=== PATIENT | male | born 1955 | race Caucasian/White ===

== ENCOUNTER 2022-11-09 22:09 | Emergency (ER) | payer MEDICARE ==
[~2022-11-09] VITALS: Ht 190.5 cm; Wt 127.0 kg
[2022-11-09] MEDS ORDERED: IBUPROFEN 400 MG TABLET PO ONE (23:30)
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
--- NOTE | 2022-11-09 23:38 | NUR ---
BROUGHT TO CT DEPT
[2022-11-09] MEDS ORDERED: IBUPROFEN 400 MG TABLET ONE (23:40)
--- NOTE | 2022-11-09 23:49 | NUR ---
PT RETURNED TO ER BED [address]
[2022-11-10] MEDS ORDERED: IBUP-1957 PO (00:10)
--- NOTE | 2022-11-10 00:16 | NUR ---
Patient discharged to home in stable condition. Written and verbal after care instructions given. Patient verbalizes understanding of instruction.
[2022-11-10 00:49] VITALS: BP 158/82
== END 2022-11-10 00:20 | disposition home or self-care (01) ==
LOC: ER 22:22
DX: S13.4XXA Sprain of ligaments of cervical spine, initial encounter (principal); S20.211A Contusion of right front wall of thorax, initial encounter; S46.011A Strain of muscle(s) and tendon(s) of the rotator cuff of right shoulder, initial encounter; Z85.46 Personal history of malignant neoplasm of prostate; V89.2XXA Person injured in unspecified motor-vehicle accident, traffic, initial encounter; Y93.89 Activity, other specified; Y92.89 Other specified places as the place of occurrence of the external cause; Y99.8 Other external cause status
CPT/HCPCS: 71100-TC; 72125-TC; 73030-TC